=== PATIENT | male | born 1985 | race Caucasian/White ===

== ENCOUNTER 2017-04-19 13:27 | Emergency (ER) | payer OTHER ==
[~2017-04-19] VITALS: Ht 177.8 cm; Wt 108.0 kg
[~2017-04-19 13:27] MED LIST: CIPRO500 MG PO; IBUPROFEN600 MG PO; ULTRAM50 MG PO
[2017-04-19 14:14] LABS: ADD MIUA? NO; BILIRUBIN NEGATIVE; BLOOD NEGATIVE; COLOR STRAW ((YELLOW)); GLUCOSE (STRIP) NEGATIVE; KETONES NEGATIVE; LEUKOCYTES NEGATIVE; NITRITE NEGATIVE; PROTEIN (STRIP) NEGATIVE; SPECIFIC GRAVITY 1.006 (1.000-1.030); UROBILINOGEN 0.2 MG/DL (0.2-1.0)
[2017-04-19 15:28] LABS: HEMATOCRIT 41.8 % (38.0-50.0); MCV 82.3 FL (86-99); MEAN PLAT.VOLUME 8.9 uM^3 (9.0-12.4); PLATELET COUNT 409 K/uL (156-360); RBC DIS.WIDTH-CV 12.6 % (11.8-14.6); RBC DIS.WIDTH-SD 38.3 % (39-53); RED BLOOD COUNT 5.08 M/uL (4.00-5.50); WHITE BLOOD COUNT 6.2 K/uL (4.1-10.2)
[2017-04-19 15:39] LABS: CHLORIDE 105 mEq/L (99-109); POTASSIUM 3.9 mEq/L (3.7-5.4); SODIUM 139 mEq/L (136-147)
[2017-04-19 15:40] LABS: GLUCOSE 85 mg/dL (70-99)
[2017-04-19 15:42] LABS: ANION GAP 9 MEQ/L (2-14)
[2017-04-19 15:44] LABS: GFR ESTIMATE (CALCULATED) > 59 mL/min/
[2017-04-19 15:45] LABS: UREA NITROGEN (BUN) 11 mg/dL (9-23)
[2017-04-19] MEDS ORDERED: TRAMADOL HCL50 MG PO (16:39)
[2017-04-19 16:58] VITALS: BP 131/82
== END 2017-04-19 16:59 | disposition home or self-care (01) ==
LOC: EME 13:27
PROVIDERS: Emergency Medicine
DX: N44.2 Benign cyst of testis (principal)
CPT/HCPCS: 76870; 80048; 81003; 85027; 99281; 99283